=== PATIENT | female | born 1995 | race Caucasian/White ===

== ENCOUNTER → 2017-08-08 | Outpatient (CLI) | payer BC ==
--- NOTE | 2017-08-08 12:16 | DIAGNOSTIC IMAGING REPORT ---
L WRIST MIN 3 VIEWS ROUTINE CLINICAL HISTORY: PAIN IN LEFT WRIST COMPARISON STUDY: None. FINDINGS: Mild soft tissue swelling within the left wrist. Nondisplaced distal left radius fracture which likely extends to the articular surface. The distal ulna is intact. No fractures within the carpal bones. No dislocation. IMPRESSION: Nondisplaced distal left radius fracture. Electronically signed by: Kerwin Barnhart M.D. 08/08/2017 12:15 PM Dictated Date/Time: 08/08/2017 12:14 PM
== END | disposition home or self-care (01) ==
LOC: C.RADBC 11:57
PROVIDERS: ATTEND Nurse Practitioner Family
DX: S52.502A Unspecified fracture of the lower end of left radius, initial encounter for closed fracture (principal); X58.XXXA Exposure to other specified factors, initial encounter

== ENCOUNTER → 2017-08-31 | Outpatient (CLI) | payer BC | END | disposition home or self-care (01) | LOC: C.RDSM 07:00 | PROVIDERS: ATTEND Family Medicine | DX: S62.102A Fracture of unspecified carpal bone, left wrist, initial encounter for closed fracture (principal); X58.XXXA Exposure to other specified factors, initial encounter; Z88.2 Allergy status to sulfonamides; Z91.013 Allergy to seafood ==

== ENCOUNTER → 2017-09-14 | Outpatient (CLI) | payer BC | END | disposition home or self-care (01) | LOC: C.RDSM 09:20 | PROVIDERS: ATTEND Family Medicine | DX: S62.102A Fracture of unspecified carpal bone, left wrist, initial encounter for closed fracture (principal); X58.XXXA Exposure to other specified factors, initial encounter ==

== ENCOUNTER → 2017-10-12 | Outpatient (CLI) | payer BC ==
--- NOTE | 2017-10-12 08:41 | DIAGNOSTIC IMAGING REPORT ---
L WRIST MIN 3 VIEWS ROUTINE CLINICAL HISTORY: Left wrist pain. History of fracture. COMPARISON: None. DISCUSSION: There has been progressive healing of the previously described distal radial fracture which is nondisplaced. No new fractures are evident. IMPRESSION: Progressive healing of the nondisplaced distal radial fracture. Electronically signed by: Zeferino Flower M.D. 10/12/2017 8:40 AM Dictated Date/Time: 10/12/2017 8:39 AM
== END | disposition home or self-care (01) ==
LOC: C.RDSM 17:55
PROVIDERS: ATTEND Family Medicine
DX: M25.532 Pain in left wrist (principal); S52.502A Unspecified fracture of the lower end of left radius, initial encounter for closed fracture; X58.XXXA Exposure to other specified factors, initial encounter